=== PATIENT | male | born 2000 | race Caucasian/White ===

== ENCOUNTER 2024-03-27 08:20 | Inpatient (IN) ==
[2024-03-27 08:50] LABS: Basophils # (auto) 0.05 K/uL (0.00-0.20); Basophils % (auto) 0.7 %; Eosinophils # (auto) 0.13 K/uL (0.00-0.50); Eosinophils % (auto) 1.9 %; Hematocrit (blood only) 39.6 % (42.0-52.0); Hemoglobin 14.2 g/dl (14.0-18.0); Immature Granulocytes # (auto) 0.01 K/uL (0.01-0.20); Immature Granulocytes % (auto) 0.1 %; Lymphocytes # (auto) 1.94 K/uL (1.20-3.40); Lymphocytes % (auto) 27.7 %; Mean Corpuscular Hemoglobin 29.8 pg (25.0-34.0); Mean Corpuscular Hgb Conc 35.9 g/dL (32.0-36.0); Mean Platelet Volume 10.6 fL (9.4-12.4); Monocytes # (auto) 0.76 K/uL (0.11-0.59); Monocytes % (auto) 10.8 %; Neutrophils # (auto) 4.12 K/uL (1.40-6.50); Neutrophils % (auto) 58.8 %; Platelet Count 243 K/uL (130-400); RDW Coefficient of Variation 13.2 % (11.5-14.5); RDW Standard Deviation 39.6 fL (36.4-46.3); Red Blood Count 4.77 M/uL (4.70-6.10); White Blood Count 7.01 K/ul (4.8-10.8)
[2024-03-27 09:06] LABS: Albumin Globulin Ratio 1.4 (0.9-2); Albumin Level 4.2 gm/dl (3.4-5.0); BUN Creatinine Ratio 10.8 (10-20); Bilirubin,Total 1.1 mg/dl (0.2-1.0); Calcium 9.1 mg/dl (8.6-10.3); Creatinine Clr Calc Pharmacy 98.5 ml/min; Globulin 2.9 gm/dl (2.5-4.0); Potassium 3.6 mmol/L (3.5-5.1); Total Protein 7.1 gm/dl (6.0-8.3)
[2024-03-27 09:15] LABS: Acetaminophen < 3 ug/ml (10-30); Salicylate < 3.0 mg/dl (3.0-30)
--- NOTE | 2024-03-27 09:16 | Emergency Department Note ---
Impression & Plan Drug overdose, Suicidal ideation, Mood disorder ED Provider Note NAME: GREGORIO SIMMONS AGE: 23 SEX: Male INFORMANT: Patient ED PROVIDER(S): Lloyd Crenshaw MD CHIEF COMPLAINT: Intentional drug overdose PLAN: Disposition: Pending Outpatient prescription management: none Referral: None MEDICAL DECISION MAKING: Patient presented because of overdose with suicidal intent. He was evaluated. Patient was placed on a hand winder. Initial ECG was negative except for occasional PACs or premature supraventricular complexes. Cardiac monitoring did not reveal any evidence of dysrhythmia. Poison control was consulted and recommended 8-hour observation. Patient had a minimal elevation of CK but I suspect this is related to his wrestling workouts. Patient reassessed and was stable. Repeat CK was done and was less. Patient had no events in the emergency department. Patient cleared his observation. Recommended by poison control. Consultation was made with [facility]. They were reviewing his situation secondary to staffing on the unit. I did discuss the patient's case and situation with Dr. Norton of psychiatry. They are reviewing their current situation and the liaison will be in touch with the ED psychiatric onsite case manager to further plan for the patient's care. Patient's case was signed out to Dr. Lara at the change of shift. I refer you to the EMR for further details. Care/management discussed with: ED psychiatric onsite case manager Level of care consideration(s): After review of the information above and other included data, I feel the patient requires escalation of care to admission Triage Nursing notes: reviewed and agree them. Vital Signs: reviewed and remarkable for no significant abnormalities Additional History obtained from: none Chronic Medical/Social Conditions affecting care: Mother committed suicide when he was a child Prior/ Outside/ External records reviewed: none Differential Diagnosis: Mood disorder, infection, hypoglycemia, electrolyte abnormalities, cardiac sources, intracerebral event, toxicologic, trauma, neurologic, as well as other pathologies. Diagnostics, independently interpreted by me: ECG: Twelve-lead ECG reveals sinus rhythm with premature supraventricular complexes at [address] elevation or depression. Normal QRS. Normal QTc of 433 ms Twelve-lead ECG #2 reveals sinus rhythm with sinus arrhythmia and occasional premature supraventricular complexes at [address] elevation or depression. Cardiac Monitoring: Cardiac monitoring ordered by me: The patient was placed on continuous cardiac monitoring and observed. It revealed a sinus tachycardic rhythm at 113 bpm. Medical decision rules: none Imaging studies: Deferred HPI: 23 year old Male arrives for evaluation of intentional drug overdose. This started this morning and is from taking a small handful, less than 10 Adderall that were 10 mg each. Patient states that he has been feeling overwhelmed for the last 2 weeks. It is a combination of stress with his sport, academics, and thoughts about his mother's suicide. The patient also notes the following associated symptoms, poor sleep, decreased energy and concentration. The patient has found no relieving factors. Current pain is rated as 0/10. Patient denies any prior attempts. No alcohol or drug use. Patient states that he had mono about 4 weeks ago which complicated his sports training and academics. Pt denies LOC, headache, fevers, chills, neck pain, chest pain, breathing difficulties, nausea, vomiting, abdominal pain, back pain, weakness, rash, or other complaints.. PAST MEDICAL HISTORY: See Below, mononucleosis PAST SURGICAL HISTORY: See Below, SOCIAL HISTORY: See Below, [employer] student. Denies alcohol. HOME MEDICATIONS: See Below ALLERGIES: See Below VITALS: See Below PHYSICAL EXAMINATION: GENERAL: Awake, alert, depressed-appearing, in no distress HENT: Normocephalic, atraumatic. Oropharynx unremarkable. EYES: Normal conjunctiva. Sclera non-icteric. NECK: Inspection normal. Non-tender. Supple. No nuchal rigidity. FROM. No masses. RESPIRATORY: Clear to auscultation. No wheezes. No rales. Normal respiratory effort. CARDIAC: Normal rate. Normal rhythm. No murmurs. No rubs. Extremities warm and well perfused. Pulses equal. No JVD. GI: Soft, non-distended. No tenderness to palpation. No rebound or guarding. No masses. RECTAL: Deferred. MUSCULOSKELETAL: Atraumatic. Chest examination reveals no tenderness. The back is symmetrical on inspection without obvious abnormality. There is no CVA tenderness to palpation. No joint edema. LOWER EXTREMITIES: Calves are equal size bilaterally and non-tender. No edema. No discoloration. NEURO: Normal sensorium. No sensory or motor deficits noted. SKIN: No rash or jaundice noted. PSYCH: Depressed mood and flat affect. Positive SI. Denies HI. No hallucinations or delusions. PROCEDURES: none CRITICAL CARE: none OBSERVATION NOTE: none Past Med/Surg History Problem List (Updated 03/27/24 @ 09:16 by Lloyd Crenshaw MD) Mood disorder (Acute) Suicidal ideation (Acute) Drug overdose (Acute) Social History Smoking Status: Never smoker Feels Safe at Home: Yes Gender Identity: Male Allergies Allergies Allergy/AdvReac Type Severity Reaction Status Date / Time No Known Drug Allergies Allergy Unknown Unknown Verified 03/27/24 13:40 avocado Allergy Unknown Verified 03/27/24 08:56 Home Meds Home Medications Medication Instructions Recorded Confirmed dextroamphetamine-amphetamine 10 10 mg PO QAM 03/27/24 03/27/24 mg tablet emtricitabine 200 mg-tenofovir 300 tab PO QAM 03/27/24 03/27/24 disoproxil fumarate 300 mg tablet minoxidil 10 mg tablet 10 mg PO DAILY 03/27/24 03/27/24 Results & Data (ED) Vital Signs Vital Signs - 24 hr 03/27/24 08:24 03/27/24 08:45 03/27/24 09:00 Temperature Source Oral Pulse Rate 85 88 90 Pulse Rate [Apical] Pulse Rate from SpO2 Sensor 89 Pulse Rhythm Regular Pulse Rhythm [Apical] Pulse Strength [Apical] Respiratory Rate 17 17 Respiratory Effort / Characteristics Non-Labored Spontaneous Respiratory Depth Normal Respiratory Pattern Regular Blood Pressure 133/85 135/80 Blood Pressure [Right Arm] Blood Pressure Mean 101 93 Blood Pressure Mean [Right Arm] Blood Pressure Position Lying Blood Pressure Position [Right Arm] Pulse Oximetry 99 98 Oxygen Delivery Method Room Air Room Air Sepsis Recent Fever Within 48 Hours No Sepsis New/Unexplained Change in Mental Status No Sepsis Action Taken by Nursing No Action Required 03/27/24 09:30 03/27/24 09:36 03/27/24 09:45 Temperature Source Pulse Rate 118 H Pulse Rate [Apical] Pulse Rate from SpO2 Sensor 117 H Pulse Rhythm Pulse Rhythm [Apical] Pulse Strength [Apical] Respiratory Rate 18 Respiratory Effort / Characteristics Respiratory Depth Respiratory Pattern Blood Pressure 151/91 H 137/89 Blood Pressure [Right Arm] Blood Pressure Mean 99 111 Blood Pressure Mean [Right Arm] Blood Pressure Position Blood Pressure Position [Right Arm] Pulse Oximetry 97 Oxygen Delivery Method Room Air Sepsis Recent Fever Within 48 Hours Sepsis New/Unexplained Change in Mental Status Sepsis Action Taken by Nursing 03/27/24 09:48 03/27/24 10:00 03/27/24 10:09 Temperature Source Pulse Rate 90 79 Pulse Rate [Apical] Pulse Rate from SpO2 Sensor 88 84 Pulse Rhythm Pulse Rhythm [Apical] Pulse Strength [Apical] Respiratory Rate 17 30 H Respiratory Effort / Characteristics Respiratory Depth Respiratory Pattern Blood Pressure 140/96 Blood Pressure [Right Arm] Blood Pressure Mean 115 Blood Pressure Mean [Right Arm] Blood Pressure Position Blood Pressure Position [Right Arm] Pulse Oximetry 94 94 Oxygen Delivery Method Room Air Room Air Sepsis Recent Fever Within 48 Hours Sepsis New/Unexplained Change in Mental Status Sepsis Action Taken by Nursing 03/27/24 10:15 03/27/24 10:45 03/27/24 11:23 Temperature Source Pulse Rate 94 H Pulse Rate [Apical] 95 H Pulse Rate from SpO2 Sensor 95 H Pulse Rhythm Pulse Rhythm [Apical] Pulse Strength [Apical] Respiratory Rate 21 20 Respiratory Effort / Characteristics Non-Labored Respiratory Depth Normal Respiratory Pattern Regular Blood Pressure 121/86 133/79 Blood Pressure [Right Arm] 127/98 Blood Pressure Mean 99 97 Blood Pressure Mean [Right Arm] 107 Blood Pressure Position Blood Pressure Position [Right Arm] Lying Pulse Oximetry 98 99 Oxygen Delivery Method Room Air Sepsis Recent Fever Within 48 Hours Sepsis New/Unexplained Change in Mental Status Sepsis Action Taken by Nursing 03/27/24 12:49 03/27/24 13:00 03/27/24 15:00 Temperature Source Pulse Rate 100 H Pulse Rate [Apical] 96 H 93 H Pulse Rate from SpO2 Sensor Pulse Rhythm Pulse Rhythm [Apical] Regular Pulse Strength [Apical] Normal Respiratory Rate 22 22 Respiratory Effort / Characteristics Non-Labored Respiratory Depth Normal Respiratory Pattern Regular Blood Pressure Blood Pressure [Right Arm] 117/76 117/68 Blood Pressure Mean Blood Pressure Mean [Right Arm] 89 84 Blood Pressure Position Blood Pressure Position [Right Arm] Lying Pulse Oximetry 97 96 Oxygen Delivery Method Room Air Room Air Sepsis Recent Fever Within 48 Hours Sepsis New/Unexplained Change in Mental Status Sepsis Action Taken by Nursing 03/27/24 17:00 Temperature Source Pulse Rate Pulse Rate [Apical] 83 Pulse Rate from SpO2 Sensor Pulse Rhythm Pulse Rhythm [Apical] Pulse Strength [Apical] Respiratory Rate 20 Respiratory Effort / Characteristics Respiratory Depth Respiratory Pattern Blood Pressure Blood Pressure [Right Arm] 117/72 Blood Pressure Mean Blood Pressure Mean [Right Arm] 87 Blood Pressure Position Blood Pressure Position [Right Arm] Pulse Oximetry 98 Oxygen Delivery Method Room Air Sepsis Recent Fever Within 48 Hours Sepsis New/Unexplained Change in Mental Status Sepsis Action Taken by Nursing Laboratory Data 03/27/24 08:30 03/27/24 08:30 Lab Results 03/27/24 03/27/24 03/27/24 Range/Units 08:30 08:35 10:30 WBC 7.01 (4.8-10.8) K/ul RBC 4.77 (4.70-6.10) M/uL Hgb 14.2 (14.0-18.0) g/dl Hct 39.6 L (42.0-52.0) % MCV 83.0 (80.0-100.0) fL MCH 29.8 (25.0-34.0) pg MCHC 35.9 (32.0-36.0) g/dL RDW Std Deviation 39.6 (36.4-46.3) fL RDW Coeff of Kailyn 13.2 (11.5-14.5) % Plt Count 243 (130-400) K/uL MPV 10.6 (9.4-12.4) fL Immature Gran % (Auto) 0.1 % Neut % (Auto) 58.8 % Lymph % (Auto) 27.7 % Carbon % (Auto) 10.8 % Eos % (Auto) 1.9 % Baso % (Auto) 0.7 % Neut # (Auto) 4.12 (1.40-6.50) K/uL Lymph # (Auto) 1.94 (1.20-3.40) K/uL Carbon # (Auto) 0.76 H (0.11-0.59) K/uL Eos # (Auto) 0.13 (0.00-0.50) K/uL Baso # (Auto) 0.05 (0.00-0.20) K/uL Immature Gran # (Auto) 0.01 (0.01-0.20) K/uL Sodium 140 (136-145) mmol/L Potassium 3.6 (3.5-5.1) mmol/L Chloride 105 (98-107) mmol/L Carbon Dioxide 26 (21-32) mmol/L Anion Gap 9 (3-11) BUN 13 (6-23) mg/dl Creatinine 1.20 (0.6-1.4) mg/dl Est Cr Clr Drug Dosing 98.5 ml/min eGFR 88.24 BUN/Creatinine Ratio 10.8 (10-20) Glucose 86 (70-99(Fasting)) mg/dl Calcium 9.1 (8.6-10.3) mg/dl Total Bilirubin 1.1 H (0.2-1.0) mg/dl AST 15 (13-39) U/L ALT 11 (7-52) U/L Alkaline Phosphatase 76 (34-104) U/L Total Creatine Kinase 425 H (30-223) U/L Total Protein 7.1 (6.0-8.3) gm/dl Albumin 4.2 (3.4-5.0) gm/dl Globulin 2.9 (2.5-4.0) gm/dl Albumin/Globulin Ratio 1.4 (0.9-2) TSH 1.751 (0.300-4.500) uIu/ml Urine Color Yellow Urine Appearance Turbid A (Clear) Urine pH 7.5 (4.5-7.5) Ur Specific Troy 1.016 (1.000-1.030) Urine Protein Negative (Negative) Urine Glucose (UA) Negative (Negative) Urine Ketones 3+ H (Negative) Urine Blood Negative (Negative) Urine Nitrite Negative (Negative) Urine Bilirubin Negative (Negative) Urine Urobilinogen Negative (Negative) Ur Leukocyte Esterase Negative (Negative) Urine WBC (Auto) 0-5 (0-5) /hpf Urine RBC (Auto) 0-2 (0-2) /hpf U Hyaline Cast (Auto) 0-2 (0-2) /lpf U Epithel Cells (Auto) 0-2 (0-2) /hpf Urine Bacteria (Auto) None Seen (None Seen) Salicylates < 3.0 L (3.0-30) mg/dl Urine Opiates Screen Neg (Neg) Ur Methadone, Qual Neg (Neg) Urine Fentanyl Screen Neg (Neg) Acetaminophen < 3 L (10-30) ug/ml Urine Barbiturates Neg (Neg) Ur Phencyclidine (PCP) Neg (Neg) U Amphetamin/Meth Scrn Pos H (Neg) MDMA (Ecstasy) Screen Neg (Neg) U Benzodiazepines Scrn Neg (Neg) Ur Cocaine Metabolite Neg (Neg) U Marijuana (THC) Screen Neg (Neg) Ethyl Alcohol mg/dL < 10.0 (<10.0) mg/dl SARS-CoV-2, RNA, NAAT NEGATIVE (NEGATIVE) 03/27/24 Range/Units 12:26 WBC (4.8-10.8) K/ul RBC (4.70-6.10) M/uL Hgb (14.0-18.0) g/dl Hct (42.0-52.0) % MCV (80.0-100.0) fL MCH (25.0-34.0) pg MCHC (32.0-36.0) g/dL RDW Std Deviation (36.4-46.3) fL RDW Coeff of Kailyn (11.5-14.5) % Plt Count (130-400) K/uL MPV (9.4-12.4) fL Immature Gran % (Auto) % Neut % (Auto) % Lymph % (Auto) % Carbon % (Auto) % Eos % (Auto) % Baso % (Auto) % Neut # (Auto) (1.40-6.50) K/uL Lymph # (Auto) (1.20-3.40) K/uL Carbon # (Auto) (0.11-0.59) K/uL Eos # (Auto) (0.00-0.50) K/uL Baso # (Auto) (0.00-0.20) K/uL Immature Gran # (Auto) (0.01-0.20) K/uL Sodium (136-145) mmol/L Potassium (3.5-5.1) mmol/L Chloride (98-107) mmol/L Carbon Dioxide (21-32) mmol/L Anion Gap (3-11) BUN (6-23) mg/dl Creatinine (0.6-1.4) mg/dl Est Cr Clr Drug Dosing ml/min eGFR BUN/Creatinine Ratio (10-20) Glucose (70-99(Fasting)) mg/dl Calcium (8.6-10.3) mg/dl Total Bilirubin (0.2-1.0) mg/dl AST (13-39) U/L ALT (7-52) U/L Alkaline Phosphatase (34-104) U/L Total Creatine Kinase 350 H (30-223) U/L Total Protein (6.0-8.3) gm/dl Albumin (3.4-5.0) gm/dl Globulin (2.5-4.0) gm/dl Albumin/Globulin Ratio (0.9-2) TSH (0.300-4.500) uIu/ml Urine Color Urine Appearance (Clear) Urine pH (4.5-7.5) Ur Specific Troy (1.000-1.030) Urine Protein (Negative) Urine Glucose (UA) (Negative) Urine Ketones (Negative) Urine Blood (Negative) Urine Nitrite (Negative) Urine Bilirubin (Negative) Urine Urobilinogen (Negative) Ur Leukocyte Esterase (Negative) Urine WBC (Auto) (0-5) /hpf Urine RBC (Auto) (0-2) /hpf U Hyaline Cast (Auto) (0-2) /lpf U Epithel Cells (Auto) (0-2) /hpf Urine Bacteria (Auto) (None Seen) Salicylates (3.0-30) mg/dl Urine Opiates Screen (Neg) Ur Methadone, Qual (Neg) Urine Fentanyl Screen (Neg) Acetaminophen (10-30) ug/ml Urine Barbiturates (Neg) Ur Phencyclidine (PCP) (Neg) U Amphetamin/Meth Scrn (Neg) MDMA (Ecstasy) Screen (Neg) U Benzodiazepines Scrn (Neg) Ur Cocaine Metabolite (Neg) U Marijuana (THC) Screen (Neg) Ethyl Alcohol mg/dL (<10.0) mg/dl SARS-CoV-2, RNA, NAAT (NEGATIVE) Administered Medications Discontinued Medications Sodium Chloride (Nss) 1,000 mls @ 999 mls/hr IV .Q1H1M ONE Stop: 03/27/24 11:17 Last Infusion: 03/27/24 11:45 Dose: Infused Documented By: Admin: 03/27/24 10:23 Dose: 999 mls/hr Documented By: Discharge Plan Visit Data Chief Complaint: Overdose (Intentional) Stated Complaint: OVERDOSE ED Provider: Lloyd Crenshaw Discharge Problem: Drug overdose, Suicidal ideation, Mood disorder Forms Stand Alone Forms: My [facility], Suicide Prevention Resources Prescriptions Prescriptions: No Action dextroamphetamine-amphetamine 10 mg tablet 10 mg PO QAM Rx Instructions: mon-fri off weekends minoxidil 10 mg Tablet 10 mg PO DAILY emtricitabine-tenofovir (TDF) 200-300 mg tablet 300 tab PO QAM Referrals Referrals: PCP,NO [Physician] -
[2024-03-27 09:21] LABS: Thyroid Stimulating Hormone 1.751 uIu/ml (0.300-4.500)
[2024-03-27] MEDS: SODIUM CHLORIDE 0.9% 1,000 ML IV ONE (10:23)
[2024-03-27 11:11] LABS: Appearance Urine Turbid (Clear); Bacteria Urine Automated None Seen (None Seen); Bilirubin Urine Negative (Negative); Blood Urine Negative (Negative); Cast Urine Automated 0-2 /lpf (0-2); Color Urine Yellow; Epithelial Cell Urine Auto 0-2 /hpf (0-2); Glucose Urine UA Negative (Negative); Ketones Urine 3+ (Negative); Leukocyte Esterase Urine Negative (Negative); Nitrite Urine Negative (Negative); Protein Urine Negative (Negative); RBC Urine Automated 0-2 /hpf (0-2); Specific Gravity Urine 1.016 (1.000-1.030); Urobilinogen Urine Negative (Negative); WBC Urine Automated 0-5 /hpf (0-5); pH Urine 7.5 (4.5-7.5)
[2024-03-27 11:45] LABS: Amphetamines+Metham, Urine Pos (Neg); Barbiturates, Urine Neg (Neg); Benzodiazepine, Urine Neg (Neg); Cocaine, Urine Neg (Neg); Fentanyl, Urine Neg (Neg); MDMA (Ecstacy), Urine Neg (Neg); Marijuana, Urine Neg (Neg); Methadone, Urine Neg (Neg); Opiate, Urine Neg (Neg); Phencyclidine, Urine Neg (Neg)
--- NOTE | 2024-03-27 14:10 | Electrocardiogram Report ---
Test Reason : Blood Pressure : */* mmHG Vent. Rate : 80 BPM Atrial Rate : 80 BPM P-R Int : 154 ms QRS Dur : 92 ms QT Int : 376 ms P-R-T Axes : 48 66 33 degrees QTcB Int : 433 ms Sinus rhythm with Premature supraventricular complexes Otherwise normal ECG No previous ECGs available Confirmed by Chris Bueno ([id number]) on 03/27/2024 2:10:29 PM Referred By: Confirmed By: Chris Bueno
--- OUTSIDE RECORDS SUMMARY | 2024-03-27 18:26 | External Medical Summary | Continuity of Care Document ---
Author Name Unknown Organization [facility] [address] [id number] Address [address] [place] [phone] Encounter [facility] [id number] Date(s): 11/01/23 - 11/01/23 [facility] [address] [facility] [address] [facility] [address] [place] [id number] Encounter Diagnosis ADHD (attention deficit hyperactivity disorder), combined type(Discharge Diagnosis) - 11/01/23 Discharge Disposition: Home or Self Care Attending Physician: MD Duque Philip J Referring Physician: MD Duque Philip J Allergies, Adverse Reactions, Alerts No Known Medication Allergies Assessment and Plan Extracted from: Title:Orthopaedics Office Visit Note Author:Caleb cid MD, Philip J Date:11/01/23 1.ADHD (attention deficit hyperactivity disorder), combined type Gregorio's report has been reviewed and filed in hischart. His symptoms are consistent withADHD. I explained to him there aremultiple approaches to managingADHD. He will continue to work with hisacademic advisorand the office of disability services. He also works with one of the sports psychologist on campusand meets with her on anearly weekly basis. I encouraged him to continue to do this. Medication treatment wasdiscussed. I think thatAdderall 10 mg immediate release would bereasonable. He is currently takingoneonline class for theSu 1 session and does not have any Summer 2 classes. For his current class, Mondays are his busiest day, I suggested that hetry taking thismedication next Sundayto see how he reacts to it. In the fall he will have morning classes5 days/week. If he feels that the medicationsare helping, we can continue the prescriptionin January when his fallsemester starts. I have asked Holden to contact me with an update on hissymptoms with this medication. Concerns regardingweight loss, sleep disturbance, and diversion were discussedregardingAdderall use. Medications Adderall 10 mg oral tablet Start: 11/01/23 3:43:00 PM EDT, 1 tab, PO, qAM, Disp# 12 tab, Refills: 0, prn depending on class/study schedule, Pharmacy: [facility] Start Date: 11/01/23 Status: Ordered Mental Status 11/01/23 Barriers to Learning one year None evide nt Mandatory Health Literacy Documentation Yes Health Literacy Communication Barriers N ever Primary Language Turkish Problem List Condition Confirmation Course Effective Dates Status H ealth Status Informant ADHD (attention deficit hyperactivity disorder), combined type Confirmed Active Left brachial plexitis Confirmed Active Concussion Confirmed Active COVID-19 Confirmed Active Left elbow fracture Confirmed Active Hordeolum of right upper eyelid Confirmed Active Fatigue Confirmed Active H/O sinusitis Confirmed Active H/O epistaxis Confirmed Active H/O impetigo Confirmed Active H/O concussion Confirmed Active Instability of left shoulder joint Confirmed Active Lower respiratory tract infection Confirmed Active Sports physical Confirmed Active Diagnosis Diagnosis Type Effective Dates Health Status Clinical Service Informant ADHD (attention deficit hyperactivity disorder), combined type Discharge Diagnosis 11/01/23 Vital Signs Most recent to oldest [Reference Range]: 1 Heart Rate 97 bpm (11/01/23 3:31 PM) Blood Pressure 116/70mmHg (11/01/23 3:31 PM) Social History Social History Type Response Smoking Status Never smoked cigaret olivia Sex Male Ortho Outpt Note * MD Duque Philip J: PERFORM Event Display: Ortho Outpt Note Authored Date: [id number] Referring Provider MD Duque Philip J Chief Complaint Medication discussion History of Present Illness Gregorio is a [employer] seen for follow-up ofADHDtesting. He had been working with hisacademic advisor throughout thispast year and was referred forneuropsychologicaltesting. Gregorio hadgood grades in high schoolwith a 4.2 GPA, butstruggled withclasses this pastyear. He is going into his sophomore year academically. He reports being diagnosed with ADHDas achildbut did not have any formal treatmentfor this. He reports difficulty focusing in class, when doing homework, and at timesduring wrestling practice. Physical Exam Vitals & Measurements HR:97(Monitored) BP:116/70 SpO2:98% General: Appears well, he appropriate eye contact, responding to questions appropriately. Assessment/Plan 1.ADHD (attention deficit hyperactivity disorder), combined type Gregorio's report has been reviewed and filed in hischart. His symptoms are consistent withADHD. I explained to him there aremultiple approaches to managingADHD. He will continue to work with hisacademic advisorand the office of disability services. He also works with one of the sports psychologist on campusand meets with her on anearly weekly basis. I encouraged him to continue to do this. Medication treatment wasdiscussed. I think thatAdderall 10 mg immediate release would bereasonable. He is currently takingoneonline class for theSu 1 session and does not have any Summer 2 classes. For his current class, Mondays are his busiest day, I suggested that hetrytaking thismedication next Sundayto see how he reacts to it. In the fall he will have morning classes5 days/week. If he feels that the medicationsare helping, we can continue the prescriptionin January when his fallsemester starts. I have asked Holden to contact me with an update on hissymptoms with this medication. Concerns regardingweight loss, sleep disturbance, and diversion were discussedregardingAdderall use. Problem List/Past Medical History Ongoing ADHD (attention deficit hyperactivity disorder), combined type Concussion COVID-19 Fatigue H/O concussion H/O epistaxis H/O impetigo H/O sinusitis Hordeolum of right upper eyelid Instability of left shoulder joint Left brachial plexitis Left elbow fracture Lower respiratory tract infection Sports physical Medications amphetamine-dextroamphetamine(Adderall 10 mg oral tablet), 10 mg= 1 tab, PO, qAM Allergies No Known Medication Allergies Social History Smoking Status Never smoked cigarettes Recommendations Health Maintenance Pending(in the next year) OverDue Adult Influenza Vaccine due12/08/22and every 1year Due Adult COVID-19 Vaccination due11/01/23Unknown Frequency Adult Social Determinants of Health Screening due11/01/23Unknown Frequency Adult Tdap/Td Vaccine due11/01/23Unknown Frequency Hepatitis C Screening due11/01/23One-time only Lipid Screening due11/01/23Unknown Frequency Due In Future Body Mass Index not due until09/05/24and every day Satisfied(in the past 1 year) Satisfied Body Mass Index on09/05/23.Satisfied by RICHIE Pinzon Angela M Electronic Signature on File Electronically Reviewed/Signed by: Abhi Duque MD Author Signature Dt/Tm:11/01/2023 03:57 PM Division of Sports Medicine [facility]
--- OUTSIDE RECORDS SUMMARY | 2024-03-27 18:26 | External Medical Summary | Continuity of Care Document ---
Author Name Unknown Organization [facility] [address] [id number] Address [address] [place] [address] [id number] Encounter [facility] [id number] Date(s): 02/21/24 - 02/21/24 [facility] [address] [id number] [facility] Medicine [address] [place] [id number] Encounter Diagnosis Mononucleosis(Discharge Diagnosis) - 02/21/24 Otitis media, right(Discharge Diagnosis) - 02/21/24 Discharge Disposition: Home or Self Care Attending Physician: MD Dunia, Abhi Hoover Allergies, Adverse Reactions, Alerts No Known Medication Allergies Assessment and Plan Extracted from: Title:Orthopaedics Office Visit Note Author:Caleb cid MD, Abhi Hoover Date:02/21/24 1.Mononucleosis I discussed with Holden earlier in the week thatthis may cause some fatigue and there could possibly be somehepatic or splenicinvolvement. He should focus on resting. I gave him a note to take back to his academic advisorexcusing him from classthis week. 2.Otitis media, right I have given Polly Z-Ryder equivalent from theoffice supply, as well asFlonase nasal spraywith instructions foruse. He appears to be developingsymptoms on the left as welland will use the Flonase on bothsides. I have asked Holden to keep me updated on hissymptoms. He should follow-up with me when he is feeling better and we can talk about a return to playprogression at that time. Medications Adderall 10 mg oral tablet Start: 12/27/23 4:21:00 PM EDT, 1 tab, PO, qAM, Disp# 30 tab, Refills: 0, prn depending on class/study schedule, Pharmacy: [facility] Start Date: 12/27/23 Status: Ordered Zithromax Z-Ryder 250 mg oral tablet Start: 02/21/24 9:18:00 AM EDT, See Comments, PO, Daily, Disp# 6 tab, 500 mg (2 tabs) on day 1, [id number] mg (1 tab) on days 2-5, Stop: 02/28/24 9:18:00 AM EDT, given to patient Start Date: 02/21/24 Stop Date: 02/28/24 Status: Ordered Mental Status 02/21/24 Barriers to Learning one year None evide nt Mandatory Health Literacy Documentation Yes Health Literacy Communication Barriers N ever Primary Language Bahamian Problem List Condition Confirmation Course Effective Dates Status H ealth Status Informant ADHD (attention deficit hyperactivity disorder), combined type Confirmed Active Left brachial plexitis Confirmed Active Concussion Confirmed Active COVID-19 Confirmed Active Left elbow fracture Confirmed Active Hordeolum of right upper eyelid Confirmed Active Fatigue Confirmed Active H/O sinusitis Confirmed Active H/O epistaxis Confirmed Active H/O impetigo Confirmed Active H/O concussion Confirmed Active Mononucleosis Confirmed Active Instability of left shoulder joint Confirmed Active Lower respiratory tract infection Confirmed Active Otitis media, right Confirmed Active Sports physical Confirmed Active Diagnosis Diagnosis Type Effective Dates Health Status Clinical Service Informant Mononucleosis Discharge Diagnosis 02/21/24 Otitis media, right Discharge Diagnosis 02/21/24 Social History Social History Type Response Smoking Status Never smoked cigaret olivia Sex Male Sex Representation Male (finding) Ortho Outpt Note * MD Dunia, Abhi Hoover: PERFORM Event Display: Ortho Outpt Note Authored Date: [id number] Chief Complaint Congestion, ear discomfort and [facility] pain. 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 He texted meon02/16, reporting thathe had tested positive for mono aturgent care earlier that day. He had been symptomatic for 2 to 3 daysbefore that. He has not noticed much improvement in his sympt omssince that time. He has tried togo to class a few times but has noticed significantfatigue. He has been managing symptoms withTylenol andibuprofen, and trying to rest and increase his fluid intake wherepossible. He has had a decreased appetite during this time. Last night he noticedright ear pain andcongestion. Physical Exam General:Appears well. HEENTbilateralTMs areerythematous. Canal isunremarkable. Nasal mucosa is erythematous with clear rhinorrhea. Oral mucosa is moist with postnasal drip. Tonsils are nonenlarged. Neck:Trace anterior, posterior, and preauricularlymphadenopathy. Lungs: CTA B/L Abdomen:Tender in theright upper quadrant. Assessment/Plan 1.Mononucleosis I discussed with Holden earlier in the week thatthis may cause some fatigue and there could possibly be somehepatic or splenicinvolvement. He should focus on resting. I gave him a note to take back to his academic advisorexcusing him from classthis week. 2.Otitis media, right I have given Polly Z-Ryder equivalent from the[employer] supply, as well asFlonase nasal spraywith instructions foruse. He appears to be developingsymptoms on the left as welland will usethe Flonase on bothsides. I have asked Holden to keep me updated on hissymptoms. He should follow-up with me when he is feeling better and we can talk about a return to playprogression at that time. Problem List/Past Medical History Ongoing ADHD (attention deficit hyperactivity disorder), combined type Concussion COVID-19 Fatigue H/O concussion H/O epistaxis H/O impetigo H/O sinusitis Hordeolum of right upper eyelid Instability of left shoulder joint Left brachial plexitis Left elbow fracture Lower respiratory tract infection Mononucleosis Otitis media, right Sports physical Medications amphetamine-dextroamphetamine(Adderall 10 mg oral tablet), 10 mg= 1 tab, PO, qAM azithromycin(Zithromax Z-Ryder 250 mg oral tablet), See Comments, PO, Daily Allergies No Known Medication Allergies Social History Smoking Status Never smoked cigarettes Recommendations Health Maintenance Pending(in the next year) OverDue Adult Influenza Vaccine due12/09/23and every 1year Due Adult COVID-19 Vaccination due02/21/24Unknown Frequency Adult Social Determinants of Health Screening due02/21/24Unknown Frequency Adult Tdap/Td Vaccine due02/21/24Unknown Frequency Hepatitis C Screening due02/21/24One-time only Lipid Screening due02/21/24Unknown Frequency Due In Future Body Mass Index not due until09/05/24and every 366day Satisfied(in the past 1 year) Satisfied Body Mass Index on09/05/23.Satisfied by RICHIE Pinzon Angela M Electronic Signature on File Electronically Reviewed/Signed by: Abhi Duque MD Author Signature Dt/Tm:02/21/2024 09:29 AM Division of Sports Medicine PJB
--- OUTSIDE RECORDS SUMMARY | 2024-03-27 18:26 | External Medical Summary | Continuity of Care Document ---
Author Name Unknown Organization [facility] [address] [address] Address [address] [place] [address] [id number] [id number] Date(s): 03/11/24 - 03/11/24 [facility] [address] [address] [facility] [address] [place] [id number] Encounter Diagnosis Mononucleosis(Discharge Diagnosis) - 03/11/24 Pharyngitis(Discharge Diagnosis) - 03/11/24 RUQ pain(Discharge Diagnosis) - 03/11/24 ADHD (attention deficit hyperactivity disorder), combined type(Discharge Diagnosis) - 03/11/24 Infectious mononucleosis, unspecified without complication(Final) - Acute pharyngitis, unspecified(Final) - Right upper quadrant pain(Final) - Discharge Disposition: Home or Self Care Attending Physician: MD Duque Philip J Allergies, Adverse Reactions, Alerts No Known Medication Allergies Assessment and Plan Extracted from: Title:Orthopaedics Office Visit Note Author:Caleb cid MD, Philip J Date:03/11/24 1.Mononucleosis Considering his persistent symptoms and right upper quadrantpain I think would be reasonable to get a follow-up CBC andCMP. I haveasked him to continue with his decreased activity level. If his blood work is unremarkable, we couldstart aprednisone taper at that time to help with hissymptoms. I have asked him to contact me if he needs any furtherdocumentation for missedclasses. 2.Pharyngitis 3.RUQ pain 4.ADHD (attention deficit hyperactivity disorder), combined type Holden also reports that he is running low onAdderall. He feels this medication has been effective. A new prescription has been e-prescribed for him. Addendum 03/12:Holden's CBC and CMP have been reviewed and are essentiallyunremarkable. He has been notified of this, he reports he is feeling about the same. [facility] I have asked him to contact me for anyworsening symptoms. Medications Adderall 10 mg oral tablet Start: 03/11/24 11:53:00 AM EDT, 1 tab, PO, qAM, Disp# 30 tab, Refills: 0, prn depending on class/study schedule, Pharmacy: [facility] Start Date: 03/11/24 Status: Ordered predniSONE 10 mg oral tablet Start: 03/12/24 10:12:00 AM EDT, See Instructions, Disp# 21 tab, Refills: 0, 60mg PO x 1 day, then 50mg PO x1 day, then 40mg PO x 1 day, then 30mg PO x1 day, then 20mg PO x 1 day, then 10mg PO x 1 daythen stop, Pharmacy: [facility] Start Date: 03/12/24 Status: Ordered Mental Status 03/11/24 Barriers to Learning one year None evide nt Mandatory Health Literacy Documentation Yes Health Literacy Communication Barriers N ever Primary Language Romansh Problem List Condition Confirmation Course Effective Dates [...] Confirmed Active Otitis media, right Confirmed Active Pharyngitis Confirmed Active RUQ pain Confirmed Active Sports physical Confirmed Active Weight loss Confirmed Active Diagnosis Diagnosis Type Effective Dates Health Status Clinical Service Informant Mononucleosis Discharge Diagnosis 03/11/24 Pharyngitis Discharge Diagnosis 03/11/24 RUQ pain Discharge Diagnosis 03/11/24 ADHD (attention deficit hyperactivity disorder), combined type Discharge Diagnosis 03/11/24 Results Laboratory List Name Date Complete Blood Count w Differential (CBC ,DIFFH) 03/11/24 Comprehensive Metabolic Panel (COMP META B PANEL) 03/11/24 Most recent to oldest [Reference Range]: 1 eGFR CKD-EPI [>60 mL/min/1.73 m2] >90 mL /min/1.73 m2 (03/11/24 12:14 PM) Estimated CrCl 107.32 mL/min (03/11/24 9:25 PM) MPV [9.0-12.2 fL] NOT AVAILABLE fL (03/11/24 12:14 PM) Immature Gran% 0.6 % (03/11/24 12:14 PM) Neut% 56.8 % (03/11/24 12:14 PM) Lymph% 29.7 % (03/11/24 12:14 PM) [place]% 9.9 % (03/11/24 12:14 PM) Baso% 0.7 % (03/11/24 12:14 PM) Eos% 2.3 % (03/11/24 12:14 PM) Immat Gran, Abs [0-0.4 K/uL] 0.04 K/uL (03/11/24 12:14 PM) Neut, Abs [2.0-7.7 K/uL] 4.11 K/uL (03/11/24 12:14 PM) Lymph, Abs [1.0-3.4 K/uL] 2.15 K/uL (03/11/24 12:14 PM) [place], Abs [0-1.0 K/uL] 0.72 K/uL (03/11/24 12:14 PM) Baso, Abs [0-0.1 K/uL] 0.05 K/uL (03/11/24 12:14 PM) Eos, Abs [0-0.5 K/uL] 0.17 K/uL (03/11/24 12:14 PM) Type of Diff: AUTO *Unknown* (03/11/24 12:14 PM) RDW [11.5-14.2 %] 12.9 % (03/11/24 12:14 PM) Anion Gap [5-14 mmol/L] 9 mmol/L (03/11/24 12:14 PM) Alb [3.5-5.2 g/dL] 4.5 g/dL (03/11/24 12:14 PM) Alk Phos [40-130 unit/L] 103 unit/L 1 (03/11/24 12:14 PM) ALT [0-41 unit/L] 12 unit/L (03/11/24 12:14 PM) AST [0-40 unit/L] 11 unit/L (03/11/24 12:14 PM) BUN [6-23 mg/dL] 10 mg/dL (03/11/24 12:14 PM) Ca [8.4-10.2 mg/dL] 9.6 mg/dL (03/11/24 12:14 PM) Cl- [98-107 mmol/L] 104 mmol/L (03/11/24 12:14 PM) HCO3 [22-29 mmol/L] 28 mmol/L (03/11/24 12:14 PM) Cret [0.70-1.30 mg/dL] 1.15 mg/dL (03/11/24:14 PM) Glu [74-109 mg/dL] 89 mg/dL 2 (03/11/24 12:14 PM) Hct [39-48 %] 44.9 % (03/11/24 12:14 PM) Hgb [13.0-17.0 g/dL] 15.6 g/dL (03/11/24 12:14 PM) K [3.5-5.1 mmol/L] 4.7 mmol/L (03/11/24 12:14 PM) MCH [28-33 pg] 29.9 pg (03/11/24:14 PM) MCHC [32-36 g/dL] 34.7 g/dL (03/11/24 12:14 PM) MCV [81-96 fL] 86.0 fL (03/11/24 12:14 PM) Na [136-145 mmol/L] 141 mmol/L (03/11/24 12:14 PM) Plts [150-350 K/uL] CLUMPED K/uL 3 (03/11/24 12:14 PM) RBC [4.40-5.60 M/uL] 5.22 M/uL (03/11/24 12:14 PM) T Bili [0.0-1.2 mg/dL] 0.8 mg/dL (03/11/24 12:14 PM) Prot [6.4-8.3 g/dL] 7.7 g/dL (03/11/24 12:14 PM) WBC [4.0-10.4 K/uL] 7.24 K/uL (03/11/24 12:14 PM) 1Result Comment: Low levels of ALKP may indicate a deficiency in zinc, magnesium, or malnutritionbutcan also be an indicator of a rare genetic disease hypophosphatasia (HPP). 2Result Comment: ADA recommendation for FASTING Serum/Plasma Glucose: Normal: 70-100 mg/dL Prediabetes: 100-125 mg/dL Diabetes: 126 mg/dL or higher 3Result Comment: WITHIN NORMAL LIMITS Social History Social History Type Response Smoking Status Never smoked cigaret olivia Sex Male Sex Representation Male (finding) Ortho Outpt Note * MD Dunia, Abhi Hoover: PERFORM Event Display: Ortho Outpt Note Authored Date: Chief Complaint Followup mono. Cont to have multiple symptoms. 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 He was diagnosed [id number] ago. 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 He has only missed class a few times because of this and had to miss classyesterday due to the increasing symptoms. Physical Exam General:Appears fatigued. HEENT: TMs are clear, nasal mucosa is erythematous with clear rhinorrhea. Oral mucosa is moist.Pharynx is erythematous withouttonsillar hypertrophy. Neck:No anterior or posterior cervical lymphadenopathy. Lungs: CTA B/L Abdomen:Slightly tender to palpationin the right upper quadrant, otherwise nontender, no rebound or guarding. Assessment/Plan 1.Mononucleosis Considering his persistent symptoms and right upper quadrantpain I think would be reasonable toget a follow-up CBC andCMP. I haveasked him to continue with his decreased activity level. If his blood work is unremarkable, we couldstart aprednisone taper at that time to help with hissymptoms. I have asked him to contact me if he needs any furtherdocumentation for missedclasses. 2.Pharyngitis 3.RUQ pain 4.ADHD (attention deficit hyperactivity disorder), combined type Holden also reports that he is running low onAdderall. He feels this medication has been effective. A new prescription has been e-prescribed for him. Addendum 03/12:Holden's CBC and CMP have been reviewed and are essentiallyunremarkable. He has been notified of this, he reports he is feeling about the same. A prescription for a prednisone taper has mari- [facility]to [facility]. I have asked him to contact me for anyworseningsymptoms. Problem List/Past Medical History Ongoing ADHD (attention deficit hyperactivity disorder), combined type Concussion COVID-19 Fatigue H/O concussion H/O epistaxis H/O impetigo H/O sinusitis Hordeolum of right upper eyelid Instability of left shoulder joint Left brachial plexitis Left elbow fracture Lower respiratory tract infection Mononucleosis Otitis media, right Pharyngitis RUQ pain Sports physical Weight loss Medications amphetamine-dextroamphetamine(Adderall 10 mg oral tablet), 10 mg= 1 tab, PO, qAM predniSONE(predniSONE 10 mg oral tablet), See Instructions Allergies No Known Medication Allergies Social History Smoking Status Never smoked cigarettes Recommendations Health Maintenance Pending(in the next year) OverDue Adult Influenza Vaccine due12/09/23and every 1year Due Adult COVID-19 Vaccination due03/12/24Unknown Frequency Adult Social Determinants of Health Screening due03/12/24Unknown Frequency Adult Tdap/Td Vaccine due03/12/24Unknown Frequency Hepatitis C Screening due03/12/24One-time only Lipid Screening due03/12/24Unknown Frequency Due In Future Body Mass Index not due until09/05/24and every Satisfied(in the past 1 year) Satisfied Body Mass Index on09/05/23.Satisfied by RICHIE Pinzon Angela M Electronic Signature on File Electronically Reviewed/Signed by: Abhi Duque MD Author Signature Dt/Tm:03/12/2024 10:18 AM Division of Sports Medicine PJB
[2024-03-27] MEDS ORDERED: BISMUTH SUBSALICYLATE 262 MG CHEW PO PRN (22:04)
[2024-03-27] MEDS ORDERED: MAGNESIUM HYDROXIDE SUSP 30 ML UDC PO PRN (22:04)
[2024-03-27] MEDS ORDERED: ALUMINUM/MAGNESIUM SUSP 30 ML UDC PO PRN (22:04)
[2024-03-27] MEDS ORDERED: hydrOXYzine HCl 25 MG TAB PO PRN (22:04)
[2024-03-27] MEDS ORDERED: SODIUM CHLORIDE 0.65% NA SOLN 45 ML (OCEAN) PRN (22:04)
[2024-03-27] MEDS: MELATONIN 3 MG TAB PO STA (22:33)
--- NOTE | 2024-03-27 23:24 | Emergency Department Note ---
ED Visit Note Patient signed out to me at change of shift from Dr. Crenshaw. Patient medically cleared at time of signout after 8 hours of observation following an intentional overdose of Adderall. Patient seeking voluntary mental health treatment at this time. Patient referred to [facility] for additional inpatient mental health treatment. Patient had no new or evolving symptoms throughout the course of my shift. He was eventually evaluated by the [facility] liaison at 201 signed by me. .
--- NOTE | 2024-03-28 07:34 | Electrocardiogram Report ---
Test Reason : Blood Pressure : */* mmHG Vent. Rate : 78 BPM Atrial Rate : 97 BPM P-R Int : 154 ms QRS Dur : 88 ms QT Int : 402 ms P-R-T Axes : 54 68 29 degrees QTcB Int : 458 ms Sinus rhythm with frequent Premature atrial complexes (some with aberrancy) Otherwise normal ECG When compared with ECG of 27-Mar-2024 08:51, No significant change Confirmed by Chris Bueno ([id number]) on 03/28/2024 7:33:56 AM Referred By: REFERRED SELF Confirmed By: Chris Bueno
--- NOTE | 2024-03-28 08:36 | History & Physical ---
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 He initially signed a 72 hour notice but has now rescinded this, he feels this was prompted by his anxiety about being in a new situation. Diagnostically consistent with major depressive disorder, generalized anxiety disorder, likely social anxiety component, as well as complex PTSD/complicated b ereavement and ADHD per history. Suspect his recent mononucleosis infection also impacted his energy, mood, limited his ability to engage with physical activity and wrestling as a coping skill and interest and may have contributed to onset of his current depressive episode. Discussed medication treatment options in detail including SSRIs, stimulants, clonidine, Wellbutrin, trazodone. Discussed risks, benefits and alternatives. Patient would like to start and consented to sertraline for MDD/HORACIO. Reviewed side effects including but not limited to: GI, HASSAN, sexual side effects, and counseled on black box warning of potential for emergence of or increased SI and need to let staff know should this occur or should they feel unsafe. Also discussed importance of seeking emergency care following discharge if this side effect occurs in the future. Will discontinue Adderall as this was part of his suicide attempt, in the future consider use of an alternative stimulant medication, such as Concerta or Vyvanse, given academic benefits but without the associated memories related to the suicide attempt that are now of concern if Adderall was to be used again in the future. Overall I spent a total of 90 minutes for this admission including review of chart records, review of labwork, direct evaluation of the patient, counseling the patient, ordering medication, risk assessment, discussion with the psychiatric liason RN and documentation in the electronic health record. (1) Suicide attempt: (2) Major depressive disorder with current active episode: (3) HORACIO (generalized anxiety disorder): (4) Complicated bereavement: (5) ADHD: (6) Mononucleosis: Plan 03/28/2024: The patient was admitted to the [facility] ([facility]) on q15 min checks (behavioral with suicide precautions) for safety. The patient will participate in group, recreational, and milieu therapies and will be offered additional individual and family sessions as clinically appropriate. -Medications: * Start sertraline 25mg daily with plan to titrate to 50mg daily if tolerated after 1-2 days * Discontinue Adderall IR given suicide attempt; in future could consider use of Concerta or Vyvanse for ADHD (neither available on hospital formulary to start trial in the inpatient setting) Inventory Assets Strengths: supportive relationships, willing to get treatment Needs: safety and stabilization, medication adjustment, additional coping skills, increased outpatient services Suicide Risk Level Suicide Risk Level: High-Moderate (q15 min suicide checks) (s/p serious suicide attempt but glad to be alive, denies current SI, feels safe in the hospital and feels able to ask for help ) Suicide Risk Level Comments: Risk Factors Assessment Male: Yes : No Do You Have Access To A Gun?: No Health Problems: Yes (mono infection) Mental Health Diagnoses: Yes Substance Use Disorders: No Previous Attempt: Yes (leading to this admission) Family History of Suicide: Yes (mother, father and maternal grandmother) Previous Psychiatric Hospitalization: No Protective Factors Assessment 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 Chief Complaint "I felt like I had zero control over anything". History of Present Illness He presents for psychiatric admission for worsening depression and suicide attempt via ingestion of prescribed Adderall in the context of multiple psychosocial stressors including the pressure of wanting to impress his parents (aunt and uncle), complicated bereavement, academic stress (difficulties with a professor not accommodating his absences despite medical notes), and recent mono infection. On morning he felt like "I was having a breakdown because everything hit and I was sad, scared, confused" and suddenly while planning to take his scheduled morning dose of Adderall had the thought and urge to take a bunch of them. He didn't research what excessive Adderall could do but because of his family history he has looked up what medications could do in excess in the past and knew it could cause seizures, fainting, high blood pressure. He recalls having the urge to take Adderall as a suicide attempt and took it off his counter after debating for 20 minutes. He then brought it to campus because he was going to give it to his emr trainer because he didn't feel safe having the medication around but then he ended up taking it in his car once he drove to campus. He then called his therapist right away and alerted his emr trainer. He states he is "very happy" to be alive following the suicide attempt. 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 He endorses depressive symptoms including tearfulness, unsure if he's felt hopelessness, decreased energy, decreased motivation, decreased sleep (sleep onset insomnia and multiple awakenings), decreased appetite (Adderall also negatively impacts). Suicidal thoughts started this week (things like "what would it be like if I wasn't here"). He endorses anxiety symptoms including excessive worry, restlessness, irritability, muscle tension, insomnia, decreased concentration, no history of panic attacks. He endorses PTSD symptoms including denies flashbacks, denies avoidance, endorses trust issues ("I have a hard time wanting to meet new people"), emotional lability, denies any history of night terrors. 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 He's interested in trying an SSRI medication. Psychiatric ROS notable for history of anxiety and ADHD. No current nor history of symptoms of tano, psychosis, OCD, self-harm, nor eating disorder. Additional history per ED CM note from 03/27/2024: "Completed MH evaluation with patient. Patient's aunt and uncle Elissa and Lloyd (Guardians) were present with permission of patient. Patient reports current stressors including school, health as he has had mono since February and wrestling. He has been unable to practice and wrestling is his main coping skill. Patient reports missing a lot of school due to being sick, but states his grades are still good at this point. He does admit to not having any motivation. He feels hopeless and has had a significant increase in his depressive symptoms for about two weeks now. Patient states he has no appetite and he sleeps about 4 hours nightly, despite taking melatonin. Patient denies any hallucinations or delusions. He reports no drug or alcohol use, and does not smoke or vape. Patient reports a history of MH and DA use within the family. Per report, patient's mother was diagnosed with bipolar disorder before she committed suicide by overdose. His father also had bipolar disorder. His aunt and grandfather both had undiagnosed MH. Patient denies any manic symptoms. Patient has never been inpatient for MH treatment. Patient reports his mother when he was 9, his grandmother when he was 18 and his father when he was 21, these were all very traumatic deaths for him. Patient has lived with his aunt and uncle since he was 11 years old. Patient denies access to any guns/weapons. " Past Psychiatric History Current Psychiatric Diagnosis: unspecified depressive d/o, anxiety, ADHD Outpatient Services: -therapy with Lissette Haney through [facility]ics, over the summer weekly, not this fall after mono infection Previous Psych Admissions: none Do You Have Access To A Gun?: No History of Previous Suicide Attempt: No Past Medication Trials: none Past Head Trauma/Neuro History History of Concussion/Seizure: Yes hx two prior concussions Allergies Allergy/AdvReac Type Severity Reaction Status Date / Time No Known Drug Allergies Allergy Unknown Unknown Verified 03/28/24 12:04 avocado Allergy Hives Verified 03/28/24 12:04 Home Medications Medication Instructions Recorded Confirmed Type dextroamphetamine-amphetamine 10 10 mg PO QAM 03/27/24 03/27/24 History mg tablet emtricitabine 200 mg-tenofovir 300 tab PO QAM 03/27/24 03/27/24 History disoproxil fumarate 300 mg tablet minoxidil 10 mg tablet 10 mg PO DAILY 03/27/24 03/27/24 History Family History Family History of: Alcoholism/Drug Abuse (maternal side), Bipolar (mother with hx of BPAD), Suicide Completion and Doesn't Know (paternal side largely unknown) Family Mental Health History Comment: Mom, maternal grandmother, bio-dad by suicide Alcohol History Hx of Alcohol Use Over the Past 12 Months: No AUDIT Total Score: 0 Smoking Use Have You Smoked or Used Tobacco Products in the Last 30 Days: No Smoking Status: Never smoker Substance History Hx of Prescription Med Misuse Over the Past 12 Months: No Hx of Over the Counter Med Misuse Over the Past 12 Months: No Hx of Inhalent Misuse Over the Past 12 Months: No Hx of Organic Substance Use Over the Past 12 Months: No Hx of Illegal Substances/Street Drug Use Over Past 12 Months: No Problems as a Result of Past Substance Use: None Identified Personal History Living Arrangements: Apartment Childhood: Raised by aunt and uncle, he has one older sister, two younger brothers and two younger sisters (biological cousins). He feels his aunt and uncle are very supportive but don't always understand how serious his challenges can be. Grew up in [facility]. Highest Grade Completed: Some College Employment Status: Student Marital Status: Single Number Of Children: none Beliefs That Will Affect Care: None Current Legal Problems: No Hx Legal Problems: No Hx Traumatic Life Events: Yes (racism, highschool changes, being blocked by friends after highschool incid) Patient History Medical History (Updated 03/28/24 @ 13:54 by Polly Norton MD) Mononucleosis Social History Smoking Status: Never smoker Preferred Language: Japanese Communication Ability: Effective Proofsheet Corrector Required: No Beliefs That Will Affect Care: None Feels Safe at Home: Yes Gender Identity: Male Assistive Devices: None Review of Systems Review of Systems: All systems reviewed & are unremarkable except as noted in HPI & below Physical Exam Psychiatric: Orientation: alert and oriented x 3 Apperance: appropriately dressed and appropriately groomed Eye Contact: good eye contact Motor Behavior: no abnormal motor movements Speech: normal rate/rhythm/volume of speech Affect: + depressed affect and + anxious affect Mood: + depressed mood and + anxious mood Thought Process: goal directed thought process Thought Content: reality based without delusions Suicidal Thoughts: denies suicidal thoughts (s/p overdose), denies suicidal plan and denies suicidal intent Homicidal Thoughts: denies homicidal thoughts Hallucinations: no auditory hallucinations and no visual hallucinations Cognition: recent memory grossly intact, remote memory grossly intact, attention grossly intact and language grossly intact Estimated Intelligence: consistent with education level Insight: + fair insight Judgment: + limited judgement Vital Signs (Past 24 Hours): Last Vital Signs Temp 36.3 C L 03/28/24 06:00 Pulse 90 03/28/24 06:00 Resp 16 03/28/24 06:00 BP 104/66 03/28/24 06:00 Pulse Ox 98 03/27/24 22:10 O2 Del Method Room Air 03/27/24 22:10 Exam Statement: A physical exam was performed in the ED by Dr. Crenshaw for the purposes of medical clearance. I accept that physical as correct and adequate for the purposes of the inpatient physical exam. Results & Data ([facility]) Laboratory Results Laboratory Results - last 24 hr 03/27/24 03/27/24 03/27/24 08:30 08:35 10:30 WBC 7.01 RBC 4.77 Hgb 14.2 Hct 39.6 L MCV 83.0 MCH 29.8 MCHC 35.9 RDW Std Deviation 39.6 RDW Coeff of Kailyn 13.2 Plt Count 243 MPV 10.6 Immature Gran % (Auto) 0.1 Neut % (Auto) 58.8 Lymph % (Auto) 27.7 Richardson % (Auto) 10.8 Eos % (Auto) 1.9 Baso % (Auto) 0.7 Neut # (Auto) 4.12 Lymph # (Auto) 1.94 Richardson # (Auto) 0.76 H Eos # (Auto) 0.13 Baso # (Auto) 0.05 Immature Gran # (Auto) 0.01 Sodium 140 Potassium 3.6 Chloride 105 Carbon Dioxide 26 Anion Gap 9 BUN 13 Creatinine 1.20 Est Cr Clr Drug Dosing 98.5 eGFR 88.24 BUN/Creatinine Ratio 10.8 Glucose 86 Calcium 9.1 Total Bilirubin 1.1 H AST 15 ALT 11 Alkaline Phosphatase 76 Total Creatine Kinase 425 H Total Protein 7.1 Albumin 4.2 Globulin 2.9 Albumin/Globulin Ratio 1.4 TSH 1.751 Urine Color Yellow Urine Appearance Turbid A Urine pH 7.5 Ur Specific [place] 1.016 Urine Protein Negative Urine Glucose (UA) Negative Urine Ketones 3+ H Urine Blood Negative Urine Nitrite Negative Urine Bilirubin Negative Urine Urobilinogen Negative Ur Leukocyte Esterase Negative Urine WBC (Auto) 0-5 Urine RBC (Auto) 0-2 U Hyaline Cast (Auto) 0-2 U Epithel Cells (Auto) 0-2 Urine Bacteria (Auto) None Seen Salicylates < 3.0 L Urine Opiates Screen Neg Ur Methadone, Qual Neg Urine Fentanyl Screen Neg Acetaminophen < 3 L Urine Barbiturates Neg Ur Phencyclidine (PCP) Neg U Amphetamines Confirm Pending U Amphetamin/Meth Scrn Pos H U Methamphetamin Confrm Pending MDMA (Ecstasy) Screen Neg U Benzodiazepines Scrn Neg Ur Cocaine Metabolite Neg U Marijuana (THC) Screen Neg Drug Screen Comment Pending Ethyl Alcohol mg/dL < 10.0 SARS-CoV-2, RNA, NAAT NEGATIVE 03/27/24 12:26 WBC RBC Hgb Hct MCV MCH MCHC RDW Std Deviation RDW Coeff of Kailyn Plt Count MPV Immature Gran % (Auto) Neut % (Auto) Lymph % (Auto) Richardson % (Auto) Eos % (Auto) Baso % (Auto) Neut # (Auto) Lymph # (Auto) Richardson # (Auto) Eos # (Auto) Baso # (Auto) Immature Gran # (Auto) Sodium Potassium Chloride Carbon Dioxide Anion Gap BUN Creatinine Est Cr Clr Drug Dosing eGFR BUN/Creatinine Ratio Glucose Calcium Total Bilirubin AST ALT Alkaline Phosphatase Total Creatine Kinase 350 H Total Protein Albumin Globulin Albumin/Globulin Ratio TSH Urine Color Urine Appearance Urine pH Ur Specific [place] Urine Protein Urine Glucose (UA) Urine Ketones Urine Blood Urine Nitrite Urine Bilirubin Urine Urobilinogen Ur Leukocyte Esterase Urine WBC (Auto) Urine RBC (Auto) U Hyaline Cast (Auto) U Epithel Cells (Auto) Urine Bacteria (Auto) Salicylates Urine Opiates Screen Ur Methadone, Qual Urine Fentanyl Screen Acetaminophen Urine Barbiturates Ur Phencyclidine (PCP) U Amphetamines Confirm U Amphetamin/Meth Scrn U Methamphetamin Confrm MDMA (Ecstasy) Screen U Benzodiazepines Scrn Ur Cocaine Metabolite U Marijuana (THC) Screen Drug Screen Comment Ethyl Alcohol mg/dL SARS-CoV-2, RNA, NAAT Current Inpatient Medications Current Inpatient Medications: Current Inpatient Medications Acetaminophen (Acetaminophen 325 Mg Tab) 650 mg PO Q4H PRN PRN Reason: Headache or Minor Fever Stop: 04/26/24 22:03 Al Hydrox/Mg Hydrox/Simethicone (Aluminum/Magnesium Susp 30 Ml Udc) 30 ml PO Q4H PRN PRN Reason: GI Upset Stop: 04/26/24 22:03 Benzocaine (Benzocaine 20% (Orajel) 11.9 Gm Tube) 1 appln MT BID PRN PRN Reason: Pain Stop: 04/26/24 23:14 Bismuth Subsalicylate (Bismuth Subsalicylate 262 Mg Chew) 2 tab PO Q30M PRN PRN Reason: Loose Stool/Diarrhea Stop: 04/26/24 22:03 Hydroxyzine HCl (Hydroxyzine Hcl 25 Mg Tab) 50 mg PO HSZ PRN PRN Reason: Insomnia Stop: 04/26/24 22:03 Hydroxyzine HCl (Hydroxyzine Hcl 25 Mg Tab) 25 mg PO Q4H PRN PRN Reason: Anxiety Stop: 04/26/24 22:03 Magnesium Hydroxide (Magnesium Hydroxide Susp 30 Ml Udc) 30 ml PO DAILY PRN PRN Reason: Constipation Stop: 04/26/24 22:03 Sodium Chloride (Sodium Chloride 0.65% Na Soln 45 Ml ([place])) 1 - 2 sprays NA PRN PRN PRN Reason: Nasal Dryness/Congestion Stop: 04/26/24 22:03
[2024-03-28] MEDS: EMTRICITABINE/TENOFOVIR TAB PO SCH (13:22)
[2024-03-28] MEDS: minoxidiL 2.5 MG TAB PO SCH (13:22)
[2024-03-28] MEDS: SERTRALINE HCL 50 MG TABLET PO SCH (14:27)
[2024-03-28] MEDS: BENZOCAINE 20% (ORAJEL) 11.9 GM TUBE MT PRN (14:38)
[2024-03-28] MEDS ORDERED: MELATONIN 3 MG TAB PO SCH (22:00)
[2024-03-28] MEDS: MELATONIN 3 MG TAB PO PRN (22:28)
--- NOTE | 2024-03-29 15:32 | Psychiatric Progress Note ---
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 He initially signed a 72 hour notice but has now rescinded this, he feels this was prompted by his anxiety about being in a new situation. Diagnostically consistent with major depressive disorder, generalized anxiety disorder, likely social anxiety component, as well as complex PTSD/complicated b ereavement and ADHD per history. Suspect his recent mononucleosis infection also impacted his energy, mood, limited his ability to engage with physical activity and wrestling as a coping skill and interest and may have contributed to onset of his current depressive episode. A: Patient presents recent ingestion of prescription medication due to escalating anxiety in the context of multiple stressors including infection, pressure to perform well in athletics, ruminating about that traumas. There is concern for recurrence of impulsive behavior given family history of completed suicide. Patient was educated about bipolar disorder and encouraged regular mental health follow-up for surveillance given strong family history of bipolar disorder and completed suicides. Would likely benefit from intensive outpatient program and CBT. Plan to increase Zoloft to 50 mg daily. Overall, I spent a total of 40 minutes with this case including review of chart records, nursing report, review of lab work, direct evaluation of the patient at bedside, counseling the patient, orders, and documentation in the electronic health record. (1) Suicide attempt: (2) Major depressive disorder with current active episode: (3) HORACIO (generalized anxiety disorder): (4) Complicated bereavement: (5) ADHD: (6) Mononucleosis: (7) Social anxiety disorder: Plan 03/29/2024: Increase sertraline to 50 mg daily. 03/28/2024: The patient was admitted to the [facility] ([facility] unit) on q15 min checks (behavioral with suicide precautions) for safety. The patient will participate in group, recreational, and milieu therapies and will be offered additional individual and family sessions as clinically appropriate. -Medications: * Start sertraline 25mg daily with plan to titrate to 50mg daily if tolerated after 1-2 days * Discontinue Adderall IR given suicide attempt; in future could consider use of Concerta or Vyvanse for ADHD (neither available on hospital formulary to start trial in the inpatient setting) Inventory Assets Strengths: supportive relationships, willing to get treatment Needs: safety and stabilization, medication adjustment, additional coping skills, increased outpatient services Suicide Risk Level Suicide Risk Level: High-Moderate (q15 min suicide checks) (s/p serious suicide attempt but glad to be alive, denies current SI, feels safe in the hospital and feels able to ask for help ) Suicide Risk Level Comments: Risk Factors Assessment Male: Yes : No Do You Have Access To A Gun?: No Health Problems: Yes (mono infection) Mental Health Diagnoses: Yes Substance Use Disorders: No Previous Attempt: Yes (leading to this admission) Family History of Suicide: Yes (mother, father and maternal grandmother) Previous Psychiatric Hospitalization: No Protective Factors Assessment 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 Chief Complaint "Recent stress" Review of Systems Sleep Information Total Hours of Sleep: 6 Sleep Comments: PRN Melatonin Meal Information Percent Meal Consumed - Breakfast: 90 Percent Meal Consumed - Lunch: 85 Percent Meal Consumed - Dinner: 100 Subjective Subjective Patient was seen & assessed and interval progress reviewed with treatment team nursing and social work Patient reports having multiple stressors recently including mono infection, thinking about traumas family members, feeling pressure to perform well in wrestling by his guardians. He reports the day of his Adderall ingestion he was crying and felt a loss of control. He was hesitant to take his Adderall that morning because of addiction risk. He then went to wrestling practice. He felt distressed and then took a handful of Adderall and then called his therapist. Eventually EMS was called and brought him to the hospital. He denies current suicidal ideation and reports it was an impulsive attempt. His uncle and aunt reassured him and said that it is okay if he does not wrestle and this gave him relief. He complains of recent difficulties falling asleep. Complains of poor appetite due to Adderall use. Endorses fair energy and concentration. Denies recent guilt. Denies anhedonia and enjoys bowling and spending time with friends. Patient has a chronic worry about self judgment. Reports difficulty in public settings due to fear of judgment. Complains of claustrophobia. Denies having nightmares or flashbacks. Goes to counseling twice a week and finds it helpful. Has not engaged in CBT therapy. Tolerating Zoloft and denies common side effects. Reports mom was diagnosed bipolar disorder and passed at 29 years of age due to an opiate overdose. Maternal grandmother had alcohol problems and passed at a late age due to opiate overdose. He grew up without his father who was a drug addict. Denies having access to guns and has no plans to get 1. Physical Exam Mental Examination Appearance: Well Groomed Eye Contact: Maintains Eye Contact Motor Behavior: Unremarkable Speech: Normal Mood: Euthymic and Calm Affect: Constricted Thought Process: Intact and Linear Thought Content: Intact Hallucinations: None Insight: Fair Judgement: Poor (recent ingestion) Vital Signs (Past 24 Hours) Last Vital Signs Temp 36.9 C 03/29/24 06:40 Pulse 91 H 03/29/24 06:41 Resp 16 03/29/24 06:40 BP 119/78 03/29/24 06:41 Pulse Ox 98 03/27/24 22:10 O2 Del Method Room Air 03/27/24 22:10 Results & Data ([facility]) Current Inpatient Medications Current Inpatient Medications: Current Inpatient Medications Acetaminophen (Acetaminophen 325 Mg Tab) 650 mg PO Q4H PRN PRN Reason: Headache or Minor Fever Stop: 04/26/24 22:03 Al Hydrox/Mg Hydrox/Simethicone (Aluminum/Magnesium Susp 30 Ml Udc) 30 ml PO Q4H PRN PRN Reason: GI Upset Stop: 04/26/24 22:03 Benzocaine (Benzocaine 20% (Orajel) 11.9 Gm Tube) 1 appln MT BID PRN PRN Reason: Pain Stop: 04/26/24 23:14 Last Admin: 03/28/24 22:28 Dose: 1 appln Bismuth Subsalicylate (Bismuth Subsalicylate 262 Mg Chew) 2 tab PO Q30M PRN PRN Reason: Loose Stool/Diarrhea Stop: 04/26/24 22:03 Emtricitabine/Tenofovir (Emtricitabine/Tenofovir Tab) 1 tab PO QAM ROSE; Protocol Stop: 04/27/24 12:14 Last Admin: 03/29/24 09:01 Dose: 1 tab Hydroxyzine HCl (Hydroxyzine Hcl 25 Mg Tab) 50 mg PO HSZ PRN PRN Reason: Insomnia Stop: 04/26/24 22:03 Hydroxyzine HCl (Hydroxyzine Hcl 25 Mg Tab) 25 mg PO Q4H PRN PRN Reason: Anxiety Stop: 04/26/24 22:03 Magnesium Hydroxide (Magnesium Hydroxide Susp 30 Ml Udc) 30 ml PO DAILY PRN PRN Reason: Constipation Stop: 04/26/24 22:03 Melatonin (Melatonin 3 Mg Tab) 3 mg PO HS PRN PRN Reason: Sleep Stop: 04/27/24 22:18 Last Admin: 03/28/24 22:28 Dose: 3 mg Minoxidil (Minoxidil 2.5 Mg Tab) 10 mg PO DAILY ROSE Stop: 04/27/24 12:44 Last Admin: 03/29/24 09:01 Dose: 10 mg Sertraline HCl (Sertraline Hcl 50 Mg Tablet) 50 mg PO QAM ROSE Stop: 04/29/24 08:59 Sodium Chloride (Sodium Chloride 0.65% Na Soln 45 Ml ([place])) 1 - 2 sprays NA PRN PRN PRN Reason: Nasal Dryness/Congestion Stop: 04/26/24 22:03 Mental Health & Subst Abuse Tx Therapist Name of Therapist: Jasmin Ponce Post Discharge Appointments Primary Care Physician Name Of Family Doctor/PCP: S- Team Chon Youngblood
[2024-03-30 07:02] LABS: Amphetamine Urine, Confirm 6047 ng/mL (<250); Methamphetamine, Ur Confirm NEGATIVE ng/mL (<250)
[2024-03-30] MEDS: SERTRALINE HCL 50 MG TABLET PO SCH (09:20)
[2024-03-30] MEDS: ACETAMINOPHEN 325 MG TAB PO PRN (12:56)
--- NOTE | 2024-03-30 13:24 | Psychiatric Progress Note ---
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 He initially signed a 72 hour notice but has now rescinded this, he feels this was prompted by his anxiety about being in a new situation. Diagnostically consistent with major depressive disorder, generalized anxiety disorder, likely social anxiety component, as well as complex PTSD/complicated b ereavement and ADHD per history. Suspect his recent mononucleosis infection also impacted his energy, mood, limited his ability to engage with physical activity and wrestling as a coping skill and interest and may have contributed to onset of his current depressive episode. A: Patient is tolerating sertraline well. He was counseled about cognitive behavioral therapy for social anxiety disorder and depression. Educated about intensive outpatient programs. Identified common automatic thoughts the patient ruminates about. We will coordinate with director of social services and school for disposition planning. Overall, I spent a total of 25 minutes with this case including review of chart records, nursing report, review of lab work, direct evaluation of the patient at bedside, counseling the patient, orders, and documentation in the electronic health record. (1) Suicide attempt: (2) Major depressive disorder with current active episode: (3) HORACIO (generalized anxiety disorder): (4) Complicated bereavement: (5) ADHD: (6) Mononucleosis: (7) Social anxiety disorder: Plan 03/30/2024: Continue medications and treatment plan 03/29/2024: Increase sertraline to 50 mg daily. 03/28/2024: The patient was admitted to the [facility] ([facility]] inpatient mental health unit) on q15 min checks (behavioral with suicide precautions) for safety. The patient will participate in group, recreational, and milieu therapies and will be offered additional individual and family sessions as clinically appropriate. -Medications: * Start sertraline 25mg daily with plan to titrate to 50mg daily if tolerated after 1-2 days * Discontinue Adderall IR given suicide attempt; in future could consider use of Concerta or Vyvanse for ADHD (neither available on hospital formulary to start trial in the inpatient setting) Inventory Assets Strengths: supportive relationships, willing to get treatment Needs: safety and stabilization, medication adjustment, additional coping skills, increased outpatient services Suicide Risk Level Suicide Risk Level: High-Moderate (q15 min suicide checks) (s/p serious suicide attempt but glad to be alive, denies current SI, feels safe in the hospital and feels able to ask for help ) Suicide Risk Level Comments: Risk Factors Assessment Male: Yes : No Do You Have Access To A Gun?: No Health Problems: Yes (mono infection) Mental Health Diagnoses: Yes Substance Use Disorders: No Previous Attempt: Yes (leading to this admission) Family History of Suicide: Yes (mother, father and maternal grandmother) Previous Psychiatric Hospitalization: No Protective Factors Assessment 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 Chief Complaint "Doing okay" Review of Systems Sleep Information Total Hours of Sleep: 6 Sleep Comments: PRN Melatonin Meal Information Percent Meal Consumed - Breakfast: 100 Percent Meal Consumed - Lunch: 85 Percent Meal Consumed - Dinner: 95 Subjective Subjective Patient was seen & assessed and interval progress reviewed with treatment team nursing and social work Patient slept 6.5 hours. Tolerated sertraline well. Denies suicidal ideation. At this time does not want a family meeting and counseled about benefits. Has a plan to go back to his apartment and restart school on Sunday. Wants to work out. He completed a worksheet on automatic thoughts and reported multiple automatic thoughts he regularly ruminates about and impacts his social function. Physical Exam Mental Examination Appearance: Well Groomed Eye Contact: Maintains Eye Contact Motor Behavior: Unremarkable Speech: Normal Mood: Euthymic and Calm Affect: Constricted Thought Process: Intact and Linear Thought Content: Intact Hallucinations: None Insight: Fair Judgement: Poor (recent ingestion) Vital Signs (Past 24 Hours) Last Vital Signs Temp 36.7 C 03/30/24 06:39 Pulse 83 03/30/24 06:40 Resp 16 03/30/24 06:39 BP 109/69 03/30/24 06:40 Pulse Ox 98 03/27/24 22:10 O2 Del Method Room Air 03/27/24 22:10 Results & Data ([facility]) Laboratory Results Laboratory Results - last 24 hr 03/27/24 10:30 U Amphetamines Confirm 6047 H U Methamphetamin Confrm NEGATIVE Drug Screen Comment SEE NOTE Current Inpatient Medications Current Inpatient Medications: Current Inpatient Medications Acetaminophen (Acetaminophen 325 Mg Tab) 650 mg PO Q4H PRN PRN Reason: Headache or Minor Fever Stop: 04/26/24 22:03 Last Admin: 03/30/24 12:56 Dose: 650 mg Al Hydrox/Mg Hydrox/Simethicone (Aluminum/Magnesium Susp 30 Ml Udc) 30 ml PO Q4H PRN PRN Reason: GI Upset Stop: 04/26/24 22:03 Benzocaine (Benzocaine 20% (Orajel) 11.9 Gm Tube) 1 appln MT BID PRN PRN Reason: Pain Stop: 04/26/24 23:14 Last Admin: 03/28/24 22:28 Dose: 1 appln Bismuth Subsalicylate (Bismuth Subsalicylate 262 Mg Chew) 2 tab PO Q30M PRN PRN Reason: Loose Stool/Diarrhea Stop: 04/26/24 22:03 Emtricitabine/Tenofovir (Emtricitabine/Tenofovir Tab) 1 tab PO QAM ROSE; Protocol Stop: 04/27/24 12:14 Last Admin: 03/30/24 09:20 Dose: 1 tab Hydroxyzine HCl (Hydroxyzine Hcl 25 Mg Tab) 50 mg PO HSZ PRN PRN Reason: Insomnia Stop: 04/26/24 22:03 Hydroxyzine HCl (Hydroxyzine Hcl 25 Mg Tab) 25 mg PO Q4H PRN PRN Reason: Anxiety Stop: 04/26/24 22:03 Magnesium Hydroxide (Magnesium Hydroxide Susp 30 Ml Udc) 30 ml PO DAILY PRN PRN Reason: Constipation Stop: 04/26/24 22:03 Melatonin (Melatonin 3 Mg Tab) 3 mg PO HS PRN PRN Reason: Sleep Stop: 04/27/24 22:18 Last Admin: 03/29/24 22:14 Dose: 3 mg Minoxidil (Minoxidil 2.5 Mg Tab) 10 mg PO DAILY ROSE Stop: 04/27/24 12:44 Last Admin: 03/30/24 09:21 Dose: 10 mg Sertraline HCl (Sertraline Hcl 50 Mg Tablet) 50 mg PO QAM ROSE Stop: 04/29/24 08:59 Last Admin: 03/30/24 09:20 Dose: 50 mg Sodium Chloride (Sodium Chloride 0.65% Na Soln 45 Ml ([place])) 1 - 2 sprays NA PRN PRN PRN Reason: Nasal Dryness/Congestion Stop: 04/26/24 22:03 Mental Health & Subst Abuse Tx Therapist Name of Therapist: Jasmin Ponce Post Discharge Appointments Primary Care Physician Name Of Family Doctor/PCP: S- Team Chon Youngblood
[2024-03-30] MEDS: ONDANSETRON 2 MG OD TAB PO PRN (16:27)
[2024-03-30] MEDS: hydrOXYzine HCl 25 MG TAB PO PRN (21:07)
--- NOTE | 2024-03-31 08:09 | Discharge Summary ---
Date of Service March 31, 2024 History of Present Illness He presents for psychiatric admission for worsening depression and suicide attempt via ingestion of prescribed Adderall in the context of multiple psychosocial stressors including the pressure of wanting to impress his parents (aunt and uncle), complicated bereavement, academic stress (difficulties with a professor not accommodating his absences despite medical notes), and recent mono infection. On morning he felt like "I was having a breakdown because everything hit and I was sad, scared, confused" and suddenly while planning to take his scheduled morning dose of Adderall had the thought and urge to take a bunch of them. He didn't research what excessive Adderall could do but because of his family history he has looked up what medications could do in excess in the past and knew it could cause seizures, fainting, high blood pressure. He recalls having the urge to take Adderall as a suicide attempt and took it off his counter after debating for 20 minutes. He then brought it to campus because he was going to give it to his horse trainer because he didn't feel safe having the medication around but then he ended up taking it in his car once he drove to campus. He then called his therapist right away and alerted his horse trainer. He states he is "very happy" to be alive following the suicide attempt. 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 He endorses depressive symptoms including tearfulness, unsure if he's felt hopelessness, decreased energy, decreased motivation, decreased sleep (sleep onset insomnia and multiple awakenings), decreased appetite (Adderall also negatively impacts). Suicidal thoughts started this week (things like "what would it be like if I wasn't here"). He endorses anxiety symptoms including excessive worry, restlessness, irritability, muscle tension, insomnia, decreased concentration, no history of panic attacks. He endorses PTSD symptoms including denies flashbacks, denies avoidance, endorses trust issues ("I have a hard time wanting to meet new people"), emotional lability, denies any history of night terrors. 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 He's interested in trying an SSRI medication. Psychiatric ROS notable for history of anxiety and ADHD. No current nor history of symptoms of tano, psychosis, OCD, self-harm, nor eating disorder. Additional history per ED CM note from 03/27/2024: "Completed MH evaluation with patient. Patient's aunt and uncle Elissa and Lloyd (Guardians) were present with permission of patient. Patient reports current stressors including school, health as he has had mono since February and . He has been unable to practice and wrestling is his main coping skill. Patient reports missing a lot of school due to being sick, but states his grades are still good at this point. He does admit to not having any motivation. He feels hopeless and has had a significant increase in his depressive symptoms for about two weeks now. Patient states he has no appetite and he sleeps about 4 hours nightly, despite taking melatonin. Patient denies any hallucinations or delusions. He reports no drug or alcohol use, and does not smoke or vape. Patient reports a history of MH and DA use within the family. Per report, patient's mother was diagnosed with bipolar disorder before she committed suicide by overdose. His father also had bipolar disorder. His aunt and grandfather both had undiagnosed MH. Patient denies any manic symptoms. Patient has never been inpatient for MH treatment. Patient reports his mother when he was 9, his grandmother when he was 18 and his father when he was 21, these were all very traumatic deaths for him. Patient has lived with his aunt and uncle since he was 11 years old. Patient denies access to any guns/weapons. " Physical Exam Mental Examination Appearance: Well Groomed Eye Contact: Maintains Eye Contact Motor Behavior: Unremarkable Speech: Normal Mood: Euthymic and Calm Affect: Constricted Thought Process: Intact and Linear Thought Content: Intact Hallucinations: None Insight: Fair Judgement: Poor (to limited; recent ingestion, improved) Vital Signs (Past 24 Hours) Last Vital Signs Temp 36.4 C L 03/31/24 06:45 Pulse 91 H 03/31/24 06:46 Resp 16 03/31/24 06:45 BP 127/74 03/31/24 06:46 Pulse Ox 98 03/27/24 22:10 O2 Del Method Room Air 03/27/24 22:10 Principal Diagnosis Major Depressive Disorder Psychiatric Data See daily stay summary. In short, safety was maintained and the patient was cooperative with care. Medication changes included starting Sertraline 50mg daily and they tolerated this well. Did not restart home Adderall given recent suicide attempt via ingestion and counseled on other treatments/strategies for ADHD. Would benefit from CBT outpatient and IOP. A family session was declined and safety plan was completed prior to discharge. Discussed patient's traumas, recent stressors and encouraged to utilize self care and support system. Educated about bipolar disorder given family h/o and encouraged regular therapy and check-ins for surveillance. Day of Discharge Assessment Today the patient voices readiness for discharge. They note improvement in mood and deny thoughts to harm self or others. Thoughts remain organized and they are improved from admission. There is no evidence of psychosis. They agree to take mediations as prescribed and keep follow-up appointments. They are stable for discharge to outpatient level of care. Transition of Care Transition Of Care Record: was reviewed with the patient Advance Directives Advance Directives Information Provided: Yes Advance Directives: No Mental Health Advance Directive: No Advance Directives on File: No Living Will: No Power of Brim Pouncer: No Advance Directives Reason:: Declines as Mental Health Visit. 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) Stable Relationships: Yes Supportive Family: Yes Discharge Data Lab Results 03/27/24 03/27/24 03/27/24 08:30 08:35 10:30 WBC 7.01 RBC 4.77 Hgb 14.2 Hct 39.6 L MCV 83.0 MCH 29.8 MCHC 35.9 RDW Std Deviation 39.6 RDW Coeff of Kailyn 13.2 Plt Count 243 MPV 10.6 Immature Gran % (Auto) 0.1 Neut % (Auto) 58.8 Lymph % (Auto) 27.7 [place] % (Auto) 10.8 Eos % (Auto) 1.9 Baso % (Auto) 0.7 Neut # (Auto) 4.12 Lymph # (Auto) 1.94 [place] # (Auto) 0.76 H Eos # (Auto) 0.13 Baso # (Auto) 0.05 Immature Gran # (Auto) 0.01 Sodium 140 Potassium 3.6 Chloride 105 Carbon Dioxide 26 Anion Gap 9 BUN 13 Creatinine 1.20 Est Cr Clr Drug Dosing 98.5 eGFR 88.24 BUN/Creatinine Ratio 10.8 Glucose 86 Calcium 9.1 Total Bilirubin 1.1 H AST 15 ALT 11 Alkaline Phosphatase 76 Total Creatine Kinase 425 H Total Protein 7.1 Albumin 4.2 Globulin 2.9 Albumin/Globulin Ratio 1.4 TSH 1.751 Urine Color Yellow Urine Appearance Turbid A Urine pH 7.5 Ur Specific Tyrone 1.016 Urine Protein Negative Urine Glucose (UA) Negative Urine Ketones 3+ H Urine Blood Negative Urine Nitrite Negative Urine Bilirubin Negative Urine Urobilinogen Negative Ur Leukocyte Esterase Negative Urine WBC (Auto) 0-5 Urine RBC (Auto) 0-2 U Hyaline Cast (Auto) 0-2 U Epithel Cells (Auto) 0-2 Urine Bacteria (Auto) None Seen Salicylates < 3.0 L Urine Opiates Screen Neg Ur Methadone, Qual Neg Urine Fentanyl Screen Neg Acetaminophen < 3 L Urine Barbiturates Neg Ur Phencyclidine (PCP) Neg U Amphetamines Confirm 6047 H U Amphetamin/Meth Scrn Pos H U Methamphetamin Confrm NEGATIVE MDMA (Ecstasy) Screen Neg U Benzodiazepines Scrn Neg Ur Cocaine Metabolite Neg U Marijuana (THC) Screen Neg Drug Screen Comment SEE NOTE Ethyl Alcohol mg/dL < 10.0 SARS-CoV-2, RNA, NAAT NEGATIVE 03/27/24 12:26 WBC RBC Hgb Hct MCV MCH MCHC RDW Std Deviation RDW Coeff of Kailyn Plt Count MPV Immature Gran % (Auto) Neut % (Auto) Lymph % (Auto) [place] % (Auto) Eos % (Auto) Baso % (Auto) Neut # (Auto) Lymph # (Auto) [place] # (Auto) Eos # (Auto) Baso # (Auto) Immature Gran # (Auto) Sodium Potassium Chloride Carbon Dioxide Anion Gap BUN Creatinine Est Cr Clr Drug Dosing eGFR BUN/Creatinine Ratio Glucose Calcium Total Bilirubin AST ALT Alkaline Phosphatase Total Creatine Kinase 350 H Total Protein Albumin Globulin Albumin/Globulin Ratio TSH Urine Color Urine Appearance Urine pH Ur Specific Tyrone Urine Protein Urine Glucose (UA) Urine Ketones Urine Blood Urine Nitrite Urine Bilirubin Urine Urobilinogen Ur Leukocyte Esterase Urine WBC (Auto) Urine RBC (Auto) U Hyaline Cast (Auto) U Epithel Cells (Auto) Urine Bacteria (Auto) Salicylates Urine Opiates Screen Ur Methadone, Qual Urine Fentanyl Screen Acetaminophen Urine Barbiturates Ur Phencyclidine (PCP) U Amphetamines Confirm U Amphetamin/Meth Scrn U Methamphetamin Confrm MDMA (Ecstasy) Screen U Benzodiazepines Scrn Ur Cocaine Metabolite U Marijuana (THC) Screen Drug Screen Comment Ethyl Alcohol mg/dL SARS-CoV-2, RNA, NAAT Hospital Course (1) Suicide attempt: (2) MDD (major depressive disorder), recurrent episode, moderate: (3) HORACIO (generalized anxiety disorder): (4) Complicated bereavement: (5) ADHD: (6) Social anxiety disorder: (7) Mononucleosis: Plan 03/30/2024: Continue medications and treatment plan 03/29/2024: Increase sertraline to 50 mg daily. 03/28/2024: The patient was admitted to the [facility] ([facility]) on q15 min checks (behavioral with suicide precautions) for safety. The patient will participate in group, recreational, and milieu therapies and will be offered additional individual and family sessions as clinically a ppropriate. -Medications: * Start sertraline 25mg daily with plan to titrate to 50mg daily if tolerated after 1-2 days * Discontinue Adderall IR given suicide attempt; in future could consider use of Concerta or Vyvanse for ADHD (neither available on hospital formulary to start trial in the inpatient setting) Mental Health & Subst Abuse Tx Therapist Name of Therapist: Jasmin Ponce Post Discharge Appointments Primary Care Physician Name Of Family Doctor/PCP: [facility]- Team Chon Youngblood Other #1: Name of Aftercare Appointment: [facility] (Intensive outpatient program) Phone Number of Aftercare Appointment: [phone] Aftercare Appointment Comment: Referral submitted. Contact information for [employer] provided Discharge Plan Discharge Items Patient Disposition: Home - Self-Care Reason For Visit: SI ATTEMPT Discharge Diagnosis: Major Depressive Disorder, recurrent, moderate Generalized Anxiety Disorder ADHD Social anxiety disorder Mononucleosis Condition on Discharge: Good Activity: Resume your previous activity Non-emergency contact: Primary Care Provider and Therapist Call non-emergency contact if: you have any medication questions and your symptoms worsen Follow-up/Referrals: [facility] [Primary Care Provider] - Diet: Regular Addtl Attending Provider Instructions: -Continue Sertraline 50mg daily (can take any time of day if you wish to take it later) -Engage in regular outpatient therapy; set goals and expectations with therapist -Consider intensive outpatient program (IOP) for more focused trauma and social anxiety related therapy -Utilize safety plan and keep it in a known and reachable place in situations of distress -it may be difficult to return to adderall use given recent ingestion and possible trauma. Speak with outpatient doctor about other treatments for ADHD. Also, there are many non medicine strategies to combat ADHD symptoms and are a safe way to control symptoms. Pending Studies at Discharge: No Stand-Alone Forms: My Chirpme, Smoking Cessation Medications and DC Order Prescriptions: New sertraline 50 mg Tablet 50 mg PO QAM Qty: 30 0RF Continued minoxidil 10 mg Tablet 10 mg PO DAILY emtricitabine-tenofovir (TDF) 200-300 mg tablet 300 tab PO QAM Discontinued dextroamphetamine-amphetamine 10 mg tablet 10 mg PO QAM Rx Instructions: mon-fri off weekends Discharge Orders: Discharge Order (Routine); Ordered 03/31/24 Ordered By: Boyd Shafer/Other Patient Handouts: Your Mental Health Safety Plan, Depression Family Support, ADHD Adults Admission Data Admit Date/Time: 03/27/24 21:05 Attending Provider: Boyd Coronel Admit Provider: Polly Norton Primary Care Provider: [facility] Other Interventions: Discharge Summary Assessment (RN) Last Done: 03/31/24 08:56 PSY Interdisciplinary Discharge Planning Last Done: 03/31/24 09:04 C[place] [address] D/C day mgmt 30 min or < Patient Type Established History Expanded Problem Focused Exam Expanded Problem Focused Medical Decision Making Moderate Complexity Diagnoses Suicide attempt T14.91XA MDD (major depressive disorder), recurrent episode, moderate F33.1 HORACIO (generalized anxiety disorder) F41.1 Complicated bereavement F43.21 ADHD F90.9 Social anxiety disorder F40.10 Mononucleosis B27.90
[2024-03-31] MEDS ORDERED: DESTROY THIS MEDICATION ONE (09:14)
== END 2024-03-31 11:00 | disposition home or self-care (01) | DRG 881 ==
LOC: ED 08:20 → 3S 21:05 → SUATTDRO 21:05 → 3S 21:30